=== PATIENT | female | born 1940 | race Caucasian/White ===

== ENCOUNTER 2020-10-12 05:05 | Emergency (ER) | payer MEDICARE, OTHER ==
[2020-10-12] MEDS ORDERED: CATAPRES 0.1MG0.1 MG PO (09:16)
== END 2020-10-12 09:25 | disposition home or self-care (01) ==
LOC: ER1 05:05
DX: R04.0 Epistaxis (principal); I10 Essential (primary) hypertension; Z90.710 Acquired absence of both cervix and uterus
CPT/HCPCS: 99283